=== PATIENT | female | born 1965 | race African-American/Black ===

== ENCOUNTER 2016-10-09 10:33 | Emergency (ER) | payer SELFPAY ==
[~2016-10-09] VITALS: Ht 160 cm; Wt 131.5 kg
--- NOTE | 2016-10-09 11:33 | PHYS DOC ---
Past Medical History Past Medical History: Asthma Past Surgical History: Tubal ligation Alcohol Use: Occasionally Drug Use: None Adult General Chief Complaint Chief Complaint: ANKLE PROBLEM HPI HPI Patient is a 51 year old female presents to the emergency department stating that she slipped on some well at car trip on . She states that she's been taken Aleve for pain and discomfort however she woke up this morning with increased pain and discomfort in the right lateral part of the ankle. Patient also states that she has a knot on the top of her foot. Patient states that she has increased pain with ambulation. Denies any numbness or tingling into her extremities. Patient is able to move the toes with no difficulty. Review of Systems Review of Systems Constitutional: Denies fever or chills [] Eyes: Denies change in visual acuity, redness, or eye pain [] HENT: Denies nasal congestion or sore throat [] Respiratory: Denies cough or shortness of breath [] Cardiovascular: No additional information not addressed in HPI [] GI: Denies abdominal pain, nausea, vomiting, bloody stools or diarrhea [] : Denies dysuria or hematuria [] Musculoskeletal: Denies back pain. Right ankle pain Integument: Denies rash or skin lesions [] Neurologic: Denies headache, focal weakness or sensory changes [] Endocrine: Denies polyuria or polydipsia [] Allergies Allergies Allergies Coded Allergies Type Severity Reaction Last Updated Verified No Known Drug Allergies 10/09/16 No Physical Exam Physical Exam Constitutional: Well developed, well nourished, no acute distress, non-toxic appearance. [] HENT: Normocephalic, atraumatic, bilateral external ears normal, oropharynx moist, no oral exudates, nose normal. [] Eyes: PERRLA, EOMI, conjunctiva normal, no discharge. [] Neck: Normal range of motion, no tenderness, supple, no stridor. [] Cardiovascular:Heart rate regular rhythm Lungs & Thorax: No respiratory distress noted. Skin: Warm, dry, no erythema, no rash. [] Back: No tenderness Extremities: Right lateral ankle tenderness, no cyanosis, no clubbing, ROM intact, no edema. No significant swelling noted, no bruising no discoloration noted. Peripheral pulses 2+ cap refill brisk less than 2 seconds. Patient was also noted to have a cyst on the top of the right foot. Neurologic: Alert and oriented X 3, normal motor function, normal sensory function, no focal deficits noted. [] Psychologic: Affect normal, judgement normal, mood normal. [] Current Patient Data Vital Signs Vital Signs Date Time Temp Pulse Resp B/P (MAP) Pulse Ox O2 Delivery O2 Flow Rate FiO2 10/09/16 10:38 98.2 100 18 99 Room Air 98.2 EKG EKG [] Radiology/Procedures Radiology/Procedures [][facility] [address] [place] [address] IMAGING REPORT Signed PATIENT: REESE DIETRICH ACCOUNT: [id number] : 1965 LOCATION: ER AGE: 51 SEX: F EXAM STATUS: REG ER ORD. PHYSICIAN: CALIN SAMPSON APRN REASON: right ankle pain and injury PROCEDURE: ANKLE RIGHT 3V Three-view right ankle radiographs 10/09/2016 Clinical history: Right ankle pain post fall. AP, lateral and oblique digital radiographs of the right ankle were obtained. The right ankle mortise is intact. No fracture or dislocation of the right ankle seen. Mild degenerative changes are seen involving the right ankle joint. Mild to moderate enthesophyte formation is seen involving the posterior right calcaneus. Impression: No fracture or dislocation of the right ankle is seen. DICTATED and SIGNED BY: MANDO MONROY MD DATE: 10/09/16 0930 CC: CALIN SAMPSON APRN; NON,STAFF; UNKNOWN PCP NAME ~ Course & Med Decision Making Course & Med Decision Making Pertinent Labs and Imaging studies reviewed. (See chart for details) X-rays were negative for any bony abnormalities. Patient will be placed in Cedric wrap and an Air-Stirrup splint. Recommended wearing the Cedric wrap for the next 5- 7 days in the Air-Stirrup splint for the next 7-10 days. Patient was recommended ice packs on 20 minutes off treatment several times a day. Elevation as much as possible. Patient was also encouraged to continue using Aleve or ibuprofen for pain and discomfort. Patient will be discharged home in stable condition. Patient was provided with orthopedic name and number to follow up with. All questions and concerns were answered at the patient's bedside. [] Dragon Disclaimer Dragon Disclaimer This electronic medical record was generated, in whole or in part, using a voice recognition dictation system. Departure Departure Impression: Primary Impression: Right ankle sprain Additional Impression: Ganglion cyst of right foot Disposition: 01 HOME, SELF-CARE Condition: STABLE Referrals: UNKNOWN PCP NAME (PCP) JACE MCCURDY MD Patient Instructions: Ankle Sprain, [id number], Ganglion Cyst, RICE - Routine Care for Injuries, [id number] Additional Instructions: Activity as tolerated. Wear the Cedric wrap for the next 5-7 days, the Air-Stirrup splint for the next 7- 10 days. Ice packs on 20 minutes off 20 minutes several times a day. Elevation as much as possible. Continue to use ibuprofen or Aleve for pain and discomfort. Follow-up with orthopedic in the next week. Return back to emergency prior signs symptoms of become worse. Problem Qualifiers CALIN SAMPSON APRN Oct 09, 2016 11:33
[2016-10-09 11:52] VITALS: BP 152/84
== END 2016-10-09 11:53 | disposition home or self-care (01) ==
LOC: ER 10:33
DX: S93.401A Sprain of unspecified ligament of right ankle, initial encounter (principal); M67.471 Ganglion, right ankle and foot; J45.909 Unspecified asthma, uncomplicated; W18.40XA Slipping, tripping and stumbling without falling, unspecified, initial encounter; Y93.89 Activity, other specified; Y92.89 Other specified places as the place of occurrence of the external cause; Y99.8 Other external cause status
CPT/HCPCS: 73610; 99284; L4350

== ENCOUNTER 2018-07-12 13:11 | Observation (INO) | payer OTHER ==
[~2018-07-12] VITALS: Ht 160 cm; Wt 148.9 kg
--- NOTE | 2018-07-12 13:35 | EKG ---
[facility] [address] [place] [address] Test Date: 2018-07-12 Test Time: 13:16:53 Pat Name: REESE BURNETTE Department: Room: Gender: F [employer] Operator: : 1965 Requested By: MAHNAZ MARTINEZ Order Number: [id number] Reading MD: Micah Ortiz Measurements Intervals [place] Rate: 110 P: -121 AL: 68 QRS: 42 QRSD: 72 T: 56 QT: 316 QTc: 433 Interpretive Statements SINUS RHYTHM Electronically Signed On 08-04-2018 12:05:33 CDT by Micah Ortiz
[2018-07-12 13:38] LABS: BASO % 1 % (0-3); EOS # 0.1 x10^3/uL (0.0-0.7); EOS % 2 % (0-3); HEMATOCRIT 40.6 % (36.0-47.0); HEMOGLOBIN 13.3 g/dL (12.0-15.5); LYMPH # 1.8 x10^3/uL (1.0-4.8); LYMPH % 32 % (24-48); MEAN CORPUSCULAR HEMOGLOBIN 28 pg (25-35); MEAN CORPUSCULAR HGB CONC 33 g/dL (31-37); MEAN CORPUSCULAR VOLUME 85 fL (79-100); MONO # 0.3 x10^3/uL (0.0-1.1); MONO % 6 % (0-9); NEUT # 3.5 x10^3uL (1.8-7.7); NEUT % 60 % (31-73); PLATELET COUNT 310 x10^3/uL (140-400); RED BLOOD COUNT 4.75 x10^6/uL (3.50-5.40); RED CELL DISTRIBUTION WIDTH 15.8 % (11.5-14.5); WHITE BLOOD COUNT 5.8 x10^3/uL (4.0-11.0)
--- NOTE | 2018-07-12 13:42 | RAD ---
Single view chest dated 07/12/2018. Comparison made to 02/04/2009. CLINICAL INDICATION: Left arm numbness. FINDINGS: Single upright portable exam performed. Heart and mediastinal contours are within normal limits. Lungs are somewhat hyperinflated but otherwise clear. No consolidation or pleural effusion. No pneumothorax. Mildly prominent perihilar linear markings are unchanged from prior study. IMPRESSION: No acute radiographic abnormality. Stable findings compared to 02/04/2009 Electronically signed by: Dewey Stiles MD (07/12/2018 1:40 PM) [id number]
[2018-07-12] MEDS ORDERED: MORPHINE SULFATE 4 MG/ML VIAL. IV ONE ×2 (13:45→14:45)
[2018-07-12 13:46] LABS: PROTHROMBIN TIME PATIENT 13.2 SEC (11.7-14.0)
[2018-07-12 14:09] LABS: ALBUMIN 3.6 g/dL (3.4-5.0); ALBUMIN/GLOBULIN RATIO 0.9 (1.0-1.7); CALCIUM 8.8 mg/dL (8.5-10.1); CREATININE 0.9 mg/dL (0.6-1.0); GFR 79.9; TOTAL BILIRUBIN 0.7 mg/dL (0.2-1.0); TOTAL PROTEIN 7.8 g/dL (6.4-8.2)
[2018-07-12 14:15] LABS: POTASSIUM 3.7 mmol/L (3.5-5.1)
--- NOTE | 2018-07-12 14:30 | PHYS DOC ---
Past Medical History Past Medical History: Asthma, Hypertension Past Surgical History: Tubal ligation Alcohol Use: Occasionally Drug Use: None Adult General Chief Complaint Chief Complaint: CHEST PAIN HPI HPI Patient is a 53 year old F who presents with chest pain. Started last night at midnight. Has been constant but has eased up. She thought she might be able to go to work. But the pain came back stronger. She thought it was a muscle spasm so she took 600 mg ibuprofen. She denies prior cardiac history. She does not smoke but she does have high blood pressure. She does not use drugs but drinks occas, had 1 strawberry daquiri last night. She says many members of her family have had MIs including multiple cousins in their 30s. She has not traveled recently and does not take estrogens/hormones. Review of Systems Review of Systems Constitutional: Denies fever or chills Eyes: Denies change in visual acuity, redness, or eye pain HENT: Denies nasal congestion or sore throat Respiratory: Denies cough or shortness of breath Cardiovascular: Endorses CP GI: Denies abdominal pain, nausea, vomiting, bloody stools or diarrhea : Denies dysuria or hematuria Musculoskeletal: Denies back pain or joint pain Integument: Denies rash or skin lesions Neurologic: Denies headache, focal weakness or sensory changes All other systems were reviewed and found to be within normal limits, except as documented in this note. Current Medications Current Medications Current Medications Medications (Trade) Dose Ordered Sig/Linden Start Time Stop Time Status Last Admin Dose Admin Morphine Sulfate (Morphine Sulfate) 4 mg 1X ONCE 07/12/18 14:45 07/12/18 14:53 DC 07/12/18 14:54 4 MG Allergies Allergies Allergies Coded Allergies Type Severity Reaction Last Updated Verified No Known Drug Allergies 10/09/16 No Physical Exam Physical Exam Constitutional: Well developed, well nourished, no acute distress, non-toxic appearance. HENT: Normocephalic, atraumatic, bilateral external ears normal, oropharynx moist, no oral exudates, nose normal. Eyes: PERRLA, EOMI, conjunctiva normal, no discharge. Neck: Normal range of motion, no tenderness, supple, no stridor. Cardiovascular:Heart rate regular rhythm, no murmur; TTP R chest Lungs & Thorax: Bilateral breath sounds clear to auscultation Abdomen: Bowel sounds normal, soft, no tenderness, no masses, no pulsatile masses. Skin: Warm, dry, no erythema, no rash. Back: No tenderness, no CVA tenderness. Extremities: No tenderness, no cyanosis, no clubbing, ROM intact, no edema. Neurologic: Alert and oriented X 3, normal motor function, normal sensory function, no focal deficits noted. Psychologic: Affect normal, judgement normal, mood normal. Current Patient Data Vital Signs Vital Signs Date Time Temp Pulse Resp B/P (MAP) Pulse Ox O2 Delivery O2 Flow Rate FiO2 07/12/18 14:30 90 22 140/84 (102) 98 Room Air 07/12/18 13:12 98.3 98.3 Lab Values Laboratory Tests Test 07/12/18 13:20 07/12/18 14:32 White Blood Count 5.8 x10^3/uL (4.0-11.0) Red Blood Count 4.75 x10^6/uL (3.50-5.40) Hemoglobin 13.3 g/dL (12.0-15.5) Hematocrit 40.6 % (36.0-47.0) Mean Corpuscular Volume 85 fL (79-100) Mean Corpuscular Hemoglobin 28 pg (25-35) Mean Corpuscular Hemoglobin Concent 33 g/dL (31-37) Red Cell Distribution Width 15.8 % (11.5-14.5) H Platelet Count 310 x10^3/uL (140-400) Neutrophils (%) (Auto) 60 % (31-73) Lymphocytes (%) (Auto) 32 % (24-48) Monocytes (%) (Auto) 6 % (0-9) Eosinophils (%) (Auto) 2 % (0-3) Basophils (%) (Auto) 1 % (0-3) Neutrophils # (Auto) 3.5 x10^3uL (1.8-7.7) Lymphocytes # (Auto) 1.8 x10^3/uL (1.0-4.8) Monocytes # (Auto) 0.3 x10^3/uL (0.0-1.1) Eosinophils # (Auto) 0.1 x10^3/uL (0.0-0.7) Basophils # (Auto) 0.0 x10^3/uL (0.0-0.2) Prothrombin Time 13.2 SEC (11.7-14.0) Prothrombin Time INR 1.0 (0.8-1.1) Sodium Level 139 mmol/L (136-145) Potassium Level 3.7 mmol/L (3.5-5.1) Chloride Level 102 mmol/L (98-107) Carbon Dioxide Level 24 mmol/L (21-32) Anion Gap 13 (6-14) Blood Urea Nitrogen 13 mg/dL (7-20) Creatinine 0.9 mg/dL (0.6-1.0) Estimated GFR (Cockcroft-Gault) 79.9 BUN/Creatinine Ratio 14 (6-20) Glucose Level 131 mg/dL (70-99) H Calcium Level 8.8 mg/dL (8.5-10.1) Total Bilirubin 0.7 mg/dL (0.2-1.0) Aspartate Amino Transferase (AST) 21 U/L (15-37) Alanine Aminotransferase (ALT) 32 U/L (14-59) Alkaline Phosphatase 102 U/L (46-116) Troponin I Quantitative < 0.017 ng/mL (0.000-0.055) FC-Rty-[id number]-Type Natriuretic Peptide 64 pg/mL (0-124) Total Protein 7.8 g/dL (6.4-8.2) Albumin 3.6 g/dL (3.4-5.0) Albumin/Globulin Ratio 0.9 (1.0-1.7) L Urine Collection Type Void Urine Color Yellow Urine Clarity Cloudy Urine pH 7.0 Urine Specific [place] 1.025 Urine Protein Negative mg/dL (NEG-TRACE) Urine Glucose (UA) Negative mg/dL (NEG) Urine Ketones (Stick) Negative mg/dL (NEG) Urine Blood Large (NEG) Urine Nitrite Negative (NEG) Urine Bilirubin Negative (NEG) Urine Urobilinogen Dipstick 1.0 mg/dL (0.2 mg/dL) Urine Leukocyte Esterase Trace (NEG) Urine RBC 11-20 /HPF (0-2) Urine WBC 1-4 /HPF (0-4) Urine Squamous Epithelial Cells Many /LPF Urine Bacteria Few /HPF (0-FEW) Urine Mucus Marked /LPF Laboratory Tests 07/12/18 13:20 Laboratory Tests 07/12/18 13:20 EKG EKG [] Radiology/Procedures Radiology/Procedures PROCEDURE: CT ANGIOGRAPHY CHEST CTA of the chest with contrast, 07/12/2018: HISTORY: Chest pain, shortness of breath Multidetector CT imaging was performed following an IV bolus injection of iodinated contrast material. No filling defects are seen in the main, lobar or segmental pulmonary arteries to suggest pulmonary emboli.There are pulsation type artifacts related to the ascending aorta. Minimal aortic calcific plaquing is present. There is no mediastinal or hilar adenopathy is seen. There is mild mosaic attenuation the lungs. No pulmonary mass or dense consolidation is seen. There is no evidence of pleural fluid. IMPRESSION: 1. No CT evidence of acute pulmonary emboli. 2. Mild mosaic attenuation the lungs which can be due to a variety of causes including small airway disease with air trapping, chronic thromboembolic disease or nonspecific groundglass opacities. Course & Med Decision Making Course & Med Decision Making Pertinent Labs and Imaging studies reviewed. (See chart for details) 53 y/o F presents for chest pain. CBC, CMP, Trop, BNP EKG: NSR 110 bpm, no ST elev or depr, nrml intervals. Trop neg. BNP neg. Labs reassuring. CXR neg. Admit for ACS rule out. Dragon Disclaimer Dragon Disclaimer This electronic medical record was generated, in whole or in part, using a voice recognition dictation system. Departure Departure Impression: Primary Impression: Chest pain Disposition: ADMITTED INPATIENT Admitting Physician: Other Condition: IMPROVED Referrals: COLIN ADAMES MD (PCP) MAHNAZ MARTINEZ MD July 12, 2018 14:30
[2018-07-12 14:47] LABS: BILIRUBIN,URINE NEGATIVE (NEG); CLARITY,URINE CLOUDY; COLOR,URINE YELLOW; NITRITE,URINE NEGATIVE (NEG); PROTEIN,URINE NEGATIVE (NEG-TRACE)
[2018-07-12 15:00] LABS: BACTERIA,URINE FEW /HPF (0-FEW)
[2018-07-12] MEDS ORDERED: IOHEXOL 350 MG/ML 100 ML VIAL. IV ONE (15:00)
[2018-07-12] MEDS ORDERED: CONTRAST GIVEN. MC PRN (15:00)
[2018-07-12 15:01] LABS: SQUAMOUS EPITHELIAL CELL,UR MANY /LPF
[2018-07-12] MEDS ORDERED: ENALAPRILAT 1.25 MG/ML VIAL. IVP PRN (15:15)
[2018-07-12] MEDS ORDERED: MAG HYDROX/ALUMINUM HYD/SIMETH 30 ML ORAL.SUSP PO PRN (15:15)
[2018-07-12] MEDS ORDERED: LACTULOSE 20 GM/30 ML SOLUTION. PO PRN (15:15)
[2018-07-12] MEDS ORDERED: ONDANSETRON PF 4 MG/2 ML VIAL. IV PRN (15:15)
[2018-07-12] MEDS ORDERED: ACETAMINOPHEN 325 MG TABLET. PO PRN (15:15)
[2018-07-12] MEDS ORDERED: ZOLPIDEM 5 MG TABLET. PO PRN (15:15)
[2018-07-12] MEDS ORDERED: 0.9 % SODIUM CHLORIDE 10 ML DISP.SYRIN. IV PRN (15:15)
[2018-07-12] MEDS ORDERED: NITROGLYCERIN SUBLINGUAL 0.4 MG BOTTLE OF 25. SL PRN (15:15)
--- NOTE | 2018-07-12 15:31 | RAD ---
CTA of the chest with contrast, 07/12/2018: HISTORY: Chest pain, shortness of breath Multidetector CT imaging was performed following an IV bolus injection of iodinated contrast material. No filling defects are seen in the main, lobar or segmental pulmonary arteries to suggest pulmonary emboli.There are pulsation type artifacts related to the ascending aorta. Minimal aortic calcific plaquing is present. There is no mediastinal or hilar adenopathy is seen. There is mild mosaic attenuation the lungs. No pulmonary mass or dense consolidation is seen. There is no evidence of pleural fluid. IMPRESSION: 1. No CT evidence of acute pulmonary emboli. 2. Mild mosaic attenuation the lungs which can be due to a variety of causes including small airway disease with air trapping, chronic thromboembolic disease or nonspecific groundglass opacities. PQRS Compliance Statement: One or more of the following individualized dose reduction techniques were utilized for this examination: 1. Automated exposure control 2. Adjustment of the mA and/or kV according to patient size 3. Use of iterative reconstruction technique Electronically signed by: Brain Robles MD (07/12/2018 3:28 PM) [facility]
--- NOTE | 2018-07-12 16:45 | NUR ---
Pt arrived to unit from ER via gurney to room 260. Pt ambulated to bed. Family at bedside. Pt complaining of midsternal chest pain and shortness of breath with activity. VS stable. Call light within reach. Will continue to monitor. The patient, REESE BURNETTE, 53 y/o, F admitted by DONNA SHIRLEY MD, was given written information regarding hospital policies, unit procedures and contact persons. Valuables were checked and kept in room with patient.
[2018-07-12] MEDS ORDERED: HYDR12.575 PO (17:00)
[2018-07-12] MEDS ORDERED: SERT50TA PO (17:00)
[2018-07-12] MEDS ORDERED: TRAM50TA PO (17:00)
[2018-07-12] MEDS ORDERED: AMLO5TAB10 PO (17:00)
[2018-07-12] MEDS ORDERED: CHOL2000 PO (17:00)
[2018-07-12 17:10] VITALS: BP 154/78
[2018-07-12] MEDS: ASPIRIN CHEWABLE 81 MG TABLET. PO SCH (18:27)
--- NOTE | 2018-07-12 18:56 | PDOC1 ---
History and Physical Date of Admission Date of Admission 07/12/2018 Identification/Chief Complaint Chief Complaint My chest hurts Problems: (1) Chest pain Source Source: Chart review, Patient History of Present Illness History of Present Illness Patient is a 53-year-old female with past medical history of hypertension was in her usual state of health until approximately 4-6 weeks prior to her admission was complaining of shortness of breath. Patient also refers peripheral edema especially in her extremities up to the ankle. The patient complains of retrosternal reproducible sharp stabbing discomfort that she rates at a 7 out of 10 at the worst lasting less than 20 minutes per episode intermittent not associated with food intake. The patient denies cough no sinus drainage the patient does have asthma but denies recent bouts of exacerbations. The patient denies fever chills no sick contacts were reported. The patient denies sensation of impending doom when the episodes of chest discomfort occurred no nausea or vomiting associated either no diaphoresis. The patient does give a history of dietary transgression with excessive salt since she relates to me that she "loves [place] food". The patient seems quite disturbed due to her symptoms given that she has apparently a strong family history nevertheless at the time my evaluation she seems in no apparent distress sitting on the stretcher. Her pain was clearly reproducible during my encounter she denies paroxysmal nocturnal dyspnea she denies orthopnea does not carry a diagnosis of coronary artery disease nor congestive heart failure. The patient denies daytime sleepiness nevertheless she does have a typical body habitus of someone who is afflicted by obstructive sleep apnea. We have been asked to admit patient for evaluation of chest discomfort Past Medical History Cardiovascular: HTN Current Problem List Problem List Problems Medical Problems: (1) Chest pain Status: Acute Current Medications Current Medications Current Medications Medications (Trade) Dose Ordered Sig/Lind[place] Start Time Stop Time Status Last Admin Dose Admin Acetaminophen (Tylenol) 650 mg PRN Q6HRS PRN 07/12/18 15:15 Al Hydroxide/Mg Hydroxide (Mylanta Plus Xs) 30 ml PRN Q4HRS PRN 07/12/18 15:15 Aspirin (Children'S Aspirin) 81 mg [id number] 07/12/18 16:30 07/12/18 18:27 81 MG Enalaprilat (Vasotec Inj) 1.25 mg PRN Q6HRS PRN 07/12/18 15:15 Heparin Sodium (Porcine) (Heparin Sodium) 5,000 unit Q8HRS 07/12/18 22:00 Info (CONTRAST GIVEN -- Rx MONITORING) 1 each PRN DAILY PRN 07/12/18 15:00 07/14/18 14:59 Iohexol (Omnipaque 350 Mg/ml) 100 ml 1X ONCE 07/12/18 15:00 07/12/18 15:01 DC 07/12/18 15:00 100 ML Lactulose (Lactulose) 20 gm PRN Q12HR PRN 07/12/18 15:15 Morphine Sulfate (Morphine Sulfate) 4 mg 1X ONCE 07/12/18 14:45 07/12/18 14:53 DC 07/12/18 14:54 4 MG Nitroglycerin (Nitrostat) 0.4 mg PRN Q5MIN PRN 07/12/18 15:15 Ondansetron HCl (Zofran) 4 mg PRN Q6HRS PRN 07/12/18 15:15 Sodium Chloride (Normal Saline Flush) 3 ml QSHIFT PRN 07/12/18 15:15 Zolpidem Tartrate (Ambien) 5 mg PRN QHS PRN 07/12/18 15:15 Allergies Allergies Allergies Coded Allergies Type Severity Reaction Last Updated Verified No Known Drug Allergies 10/09/16 No ROS Review of System CONSTITUTIONAL: No fever or chills EYES: No recent changes SKIN: No rash or itching CARDIOVASCULAR: + chest pain, no syncope, palpitations, +edema RESPIRATORY: No SOB or cough GASTROINTESTINAL: No nausea, vomiting or abdominal pain NEUROLOGICAL: No headaches or weakness ENDOCRINE: No cold or heat intolerance GENITOURINARY: No urgency or frequency of urination MUSCULOSKELETAL: No back pain or joint pain LYMPHATICS: No enlarged lymph nodes PSYCHIATRIC: No anxiety or depression Physical Exam Physical Exam GEN.: No apparent distress. Alert and oriented. HEENT: Head is normocephalic, atraumatic NECK: Supple. LUNGS: Clear to auscultation. HEART: RRR, S1, S2 present. Peripheral pulses intact ABDOMEN: Soft, nontender. Positive bowel sounds. EXTREMITIES: Without any cyanosis. NEUROLOGIC: Normal speech, normal tone PSYCHIATRIC: Normal affect, normal mood. SKIN: No ulcerations Vitals Vitals Vital Signs Date Time Temp Pulse Resp B/P (MAP) Pulse Ox O2 Delivery O2 Flow Rate FiO2 5/15/19 17:44 Room Air 07/12/18 17:10 98.2 77 18 154/78 (103) 98 98.2 Labs Labs Laboratory Tests Test 07/12/18 13:20 07/12/18 14:32 White Blood Count 5.8 x10^3/uL (4.0-11.0) Red Blood Count 4.75 x10^6/uL (3.50-5.40) Hemoglobin 13.3 g/dL (12.0-15.5) Hematocrit 40.6 % (36.0-47.0) Mean Corpuscular Volume 85 fL (79-100) Mean Corpuscular Hemoglobin 28 pg (25-35) Mean Corpuscular Hemoglobin Concent 33 g/dL (31-37) Red Cell Distribution Width 15.8 % (11.5-14.5) Platelet Count 310 x10^3/uL (140-400) Neutrophils (%) (Auto) 60 % (31-73) Lymphocytes (%) (Auto) 32 % (24-48) Monocytes (%) (Auto) 6 % (0-9) Eosinophils (%) (Auto) 2 % (0-3) Basophils (%) (Auto) 1 % (0-3) Neutrophils # (Auto) 3.5 x10^3uL (1.8-7.7) Lymphocytes # (Auto) 1.8 x10^3/uL (1.0-4.8) Monocytes # (Auto) 0.3 x10^3/uL (0.0-1.1) Eosinophils # (Auto) 0.1 x10^3/uL (0.0-0.7) Basophils # (Auto) 0.0 x10^3/uL (0.0-0.2) Prothrombin Time 13.2 SEC (11.7-14.0) Prothromb Time International Ratio 1.0 (0.8-1.1) Sodium Level 139 mmol/L (136-145) Potassium Level 3.7 mmol/L (3.5-5.1) Chloride Level 102 mmol/L (98-107) Carbon Dioxide Level 24 mmol/L (21-32) Anion Gap 13 (6-14) Blood Urea Nitrogen 13 mg/dL (7-20) Creatinine 0.9 mg/dL (0.6-1.0) Estimated GFR (Cockcroft-Gault) 79.9 BUN/Creatinine Ratio 14 (6-20) Glucose Level 131 mg/dL (70-99) Calcium Level 8.8 mg/dL (8.5-10.1) Total Bilirubin 0.7 mg/dL (0.2-1.0) Aspartate Amino Transf (AST/SGOT) 21 U/L (15-37) Alanine Aminotransferase (ALT/SGPT) 32 U/L (14-59) Alkaline Phosphatase 102 U/L (46-116) Troponin I Quantitative < 0.017 ng/mL (0.000-0.055) GC-Xht-S-Type Natriuretic Peptide 64 pg/mL (0-124) Total Protein 7.8 g/dL (6.4-8.2) Albumin 3.6 g/dL (3.4-5.0) Albumin/Globulin Ratio 0.9 (1.0-1.7) Urine Collection Type Void Urine Color Yellow Urine Clarity Cloudy Urine pH 7.0 Urine Specific [place] 1.025 Urine Protein Negative mg/dL (NEG-TRACE) Urine Glucose (UA) Negative mg/dL (NEG) Urine Ketones (Stick) Negative mg/dL (NEG) Urine Blood Large (NEG) Urine Nitrite Negative (NEG) Urine Bilirubin Negative (NEG) Urine Urobilinogen Dipstick 1.0 mg/dL (0.2 mg/dL) Urine Leukocyte Esterase Trace (NEG) Urine RBC 11-20 /HPF (0-2) Urine WBC 1-4 /HPF (0-4) Urine Squamous Epithelial Cells Many /LPF Urine Bacteria Few /HPF (0-FEW) Urine Mucus Marked /LPF Laboratory Tests Test 07/12/18 13:20 07/12/18 14:32 White Blood Count 5.8 x10^3/uL (4.0-11.0) Red Blood Count 4.75 x10^6/uL (3.50-5.40) Hemoglobin 13.3 g/dL (12.0-15.5) Hematocrit 40.6 % (36.0-47.0) Mean Corpuscular Volume 85 fL (79-100) Mean Corpuscular Hemoglobin 28 pg (25-35) Mean Corpuscular Hemoglobin Concent 33 g/dL (31-37) Red Cell Distribution Width 15.8 % (11.5-14.5) Platelet Count 310 x10^3/uL (140-400) Neutrophils (%) (Auto) 60 % (31-73) Lymphocytes (%) (Auto) 32 % (24-48) Monocytes (%) (Auto) 6 % (0-9) Eosinophils (%) (Auto) 2 % (0-3) Basophils (%) (Auto) 1 % (0-3) Neutrophils # (Auto) 3.5 x10^3uL (1.8-7.7) Lymphocytes # (Auto) 1.8 x10^3/uL (1.0-4.8) Monocytes # (Auto) 0.3 x10^3/uL (0.0-1.1) Eosinophils # (Auto) 0.1 x10^3/uL (0.0-0.7) Basophils # (Auto) 0.0 x10^3/uL (0.0-0.2) Prothrombin Time 13.2 SEC (11.7-14.0) Prothromb Time International Ratio 1.0 (0.8-1.1) Sodium Level 139 mmol/L (136-145) Potassium Level 3.7 mmol/L (3.5-5.1) Chloride Level 102 mmol/L (98-107) Carbon Dioxide Level 24 mmol/L (21-32) Anion Gap 13 (6-14) Blood Urea Nitrogen 13 mg/dL (7-20) Creatinine 0.9 mg/dL (0.6-1.0) Estimated GFR (Cockcroft-Gault) 79.9 BUN/Creatinine Ratio 14 (6-20) Glucose Level 131 mg/dL (70-99) Calcium Level 8.8 mg/dL (8.5-10.1) Total Bilirubin 0.7 mg/dL (0.2-1.0) Aspartate Amino Transf (AST/SGOT) 21 U/L (15-37) Alanine Aminotransferase (ALT/SGPT) 32 U/L (14-59) Alkaline Phosphatase 102 U/L (46-116) Troponin I Quantitative < 0.017 ng/mL (0.000-0.055) MJ-Jrt-Q-Type Natriuretic Peptide 64 pg/mL (0-124) Total Protein 7.8 g/dL (6.4-8.2) Albumin 3.6 g/dL (3.4-5.0) Albumin/Globulin Ratio 0.9 (1.0-1.7) Urine Collection Type Void Urine Color Yellow Urine Clarity Cloudy Urine pH 7.0 Urine Specific [place] 1.025 Urine Protein Negative mg/dL (NEG-TRACE) Urine Glucose (UA) Negative mg/dL (NEG) Urine Ketones (Stick) Negative mg/dL (NEG) Urine Blood Large (NEG) Urine Nitrite Negative (NEG) Urine Bilirubin Negative (NEG) Urine Urobilinogen Dipstick 1.0 mg/dL (0.2 mg/dL) Urine Leukocyte Esterase Trace (NEG) Urine RBC 11-20 /HPF (0-2) Urine WBC 1-4 /HPF (0-4) Urine Squamous Epithelial Cells Many /LPF Urine Bacteria Few /HPF (0-FEW) Urine Mucus Marked /LPF VTE Prophylaxis Ordered VTE Prophylaxis Devices: Yes VTE Pharmacological Prophylaxi: Yes Assessment/Plan Assessment/Plan Chest pain rule out ACS Hypertension Dietary transgressions with increased salt intake most likely Morbid obesity with BMI of 57 High risk for obstructive sleep apnea Chest discomfort most likely musculoskeletal in nature since it's reproducible Plan: Do lipid panel in the a.m. for risk stratification We'll consult cardiology Will follow troponin trend Admit the patient to telemetry floor She may need a sleep study in the outpatient setting Resume home medications DVT prophylaxis with Lovenox Further recommendations based on the clinical course DONNA SHIRLEY MD July 12, 2018 18:56
[2018-07-12] MEDS ORDERED: DEXAMETHASONE SOD PHOS 4 MG/ML VIAL IV ONE (19:00)
[2018-07-12] MEDS ORDERED: HEPARIN for IV BOLUS 10,000 UNIT/10 ML VIAL. IV PRN ×2 (19:30)
[2018-07-12] MEDS ORDERED: HEPARIN 25,000UTS/500ML PREMIX 500 ML IV PRN (19:30)
[2018-07-12 19:40] VITALS: BP 136/73
[2018-07-12] MEDS ORDERED: TEMAZEPAM 15 MG CAPSULE PO PRN (19:45)
[2018-07-12] MEDS: traMADol 50 MG TABLET PO PRN (20:15)
[2018-07-12] MEDS: HEPARIN for SUB-Q USE 5,000 UNIT/ML VIAL. SQ SCH (21:52)
[2018-07-12 23:47] VITALS: BP 137/62
[2018-07-13 03:20] VITALS: BP 137/80
[2018-07-13] MEDS: traMADol 50 MG TABLET PO PRN ×2 (04:23→11:40)
[2018-07-13 05:28] LABS: HEMATOCRIT 38.7 % (36.0-47.0); HEMOGLOBIN 12.7 g/dL (12.0-15.5); RED BLOOD COUNT 4.52 x10^6/uL (3.50-5.40); RED CELL DISTRIBUTION WIDTH 15.9 % (11.5-14.5); WHITE BLOOD COUNT 4.2 x10^3/uL (4.0-11.0)
[2018-07-13] MEDS: HEPARIN for SUB-Q USE 5,000 UNIT/ML VIAL. SQ SCH (06:06)
[2018-07-13 06:07] LABS: CREATININE 0.8 mg/dL (0.6-1.0); GFR 91.5; POTASSIUM 4.3 mmol/L (3.5-5.1)
[2018-07-13 06:08] LABS: CHOLESTEROL/HDL RATIO 3.3
[2018-07-13 07:00] VITALS: BP 138/84
--- NOTE | 2018-07-13 07:43 | RAD ---
Bilateral lower extremity venous ultrasound, 07/12/2018: History: Elevated d-dimer, chest pain, bilateral leg swelling Duplex evaluation of the deep veins in the lower extremities was performed including grayscale, color-flow and spectral Doppler analysis. The femoral and popliteal veins demonstrate normal compressibility and normal responses to distal augmentation maneuvers. Color imaging of those vessels shows no evidence of intraluminal clot. The visualized deep veins in both calves are patent. IMPRESSION: There is no sonographic evidence of deep vein thrombosis in either lower extremity. Electronically signed by: Brain Robles MD (07/13/2018 7:40 AM) [facility]
[2018-07-13] MEDS ORDERED: REGADENOSON 0.4 MG/5 ML DISP.SYRIN. IV ONE (08:00)
--- NOTE | 2018-07-13 08:10 | PDOC ---
PROGRESS NOTES Chief Complaint Chief Complaint A/P: Chest pain rule out ACS Hypertension Dietary transgressions with increased salt intake most likely Morbid obesity with BMI of 57 High risk for obstructive sleep apnea Chest discomfort most likely musculoskeletal in nature since it's reproducible Plan: Do lipid panel in the a.m. for risk stratification We'll consult cardiology Will follow troponin trend Admit the patient to telemetry floor She may need a sleep study in the outpatient setting Resume home medications DVT prophylaxis with Lovenox Further recommendations based on the clinical course History of Present Illness History of Present Illness Patient is a 53-year-old w/ PMHx hypertension and morbid obesity was in her usual state of health until approximately 4-6 weeks prior to her admission was complaining of shortness of breath. Patient also refers peripheral edema especially in her extremities up to the ankle. The patient complains of retrosternal reproducible sharp stabbing discomfort that she rates at a 7 out of 10 at the worst lasting less than 20 minutes per episode intermittent not associated with food intake. The patient denies cough no sinus drainage the patient does have asthma but denies recent bouts of exacerbations. The patient denies fever chills no sick contacts were reported. The patient denies sensation of impending doom when the episodes of chest discomfort occurred no nausea or vomiting associated either no diaphoresis. The patient does give a history of dietary transgression with excessive salt since she relates to me that she "loves [place] food". The patient seems quite disturbed due to her symptoms given that she has apparently a strong family history nevertheless at the time my evaluation she seems in no apparent distress sitting on the stretcher. Her pain was clearly reproducible during my encounter she denies paroxysmal nocturnal dyspnea she denies orthopnea does not carry a diagnosis of coronary artery disease nor congestive heart failure. The patient denies daytime sleepiness. Bilateral LE US negative for DVT, CTPA negative for acute emboli. EKG and troponin negative for ACS. BNP 64 r/o CHF. Cardiology consulted. Vitals Vitals Vital Signs Date Time Temp Pulse Resp B/P (MAP) Pulse Ox O2 Delivery O2 Flow Rate FiO2 07/13/18 07:00 97.7 70 18 138/84 (102) 97 Nasal Cannula 2.0 97.7 Physical Exam General: Alert, Oriented X3, Cooperative Heart: Regular rate, Normal S1, Normal S2 Lungs: Clear Abdomen: Normal bowel sounds, Soft, No tenderness, No hepatosplenomegaly Extremities: No clubbing, No cyanosis Skin: No rashes, No breakdown Labs LABS Laboratory Tests Test 07/12/18 13:20 07/12/18 14:32 07/13/18 04:05 White Blood Count 5.8 x10^3/uL (4.0-11.0) 4.2 x10^3/uL (4.0-11.0) Red Blood Count 4.75 x10^6/uL (3.50-5.40) 4.52 x10^6/uL (3.50-5.40) Hemoglobin 13.3 g/dL (12.0-15.5) 12.7 g/dL (12.0-15.5) Hematocrit 40.6 % (36.0-47.0) 38.7 % (36.0-47.0) Mean Corpuscular Volume 85 fL (79-100) 86 fL (79-100) Mean Corpuscular Hemoglobin 28 pg (25-35) 28 pg (25-35) Mean Corpuscular Hemoglobin Concent 33 g/dL (31-37) 33 g/dL (31-37) Red Cell Distribution Width 15.8 % (11.5-14.5) 15.9 % (11.5-14.5) Platelet Count 310 x10^3/uL (140-400) 304 x10^3/uL (140-400) Neutrophils (%) (Auto) 60 % (31-73) Lymphocytes (%) (Auto) 32 % (24-48) Monocytes (%) (Auto) 6 % (0-9) Eosinophils (%) (Auto) 2 % (0-3) Basophils (%) (Auto) 1 % (0-3) Neutrophils # (Auto) 3.5 x10^3uL (1.8-7.7) Lymphocytes # (Auto) 1.8 x10^3/uL (1.0-4.8) Monocytes # (Auto) 0.3 x10^3/uL (0.0-1.1) Eosinophils # (Auto) 0.1 x10^3/uL (0.0-0.7) Basophils # (Auto) 0.0 x10^3/uL (0.0-0.2) Prothrombin Time 13.2 SEC (11.7-14.0) Prothromb Time International Ratio 1.0 (0.8-1.1) D-Dimer (Sherry) 0.71 ug/mlFEU (0.00-0.50) Sodium Level 139 mmol/L (136-145) 138 mmol/L (136-145) Potassium Level 3.7 mmol/L (3.5-5.1) 4.3 mmol/L (3.5-5.1) Chloride Level 102 mmol/L (98-107) 103 mmol/L (98-107) Carbon Dioxide Level 24 mmol/L (21-32) 27 mmol/L (21-32) Anion Gap 13 (6-14) 8 (6-14) Blood Urea Nitrogen 13 mg/dL (7-20) 12 mg/dL (7-20) Creatinine 0.9 mg/dL (0.6-1.0) 0.8 mg/dL (0.6-1.0) Estimated GFR (Cockcroft-Gault) 79.9 91.5 BUN/Creatinine Ratio 14 (6-20) Glucose Level 131 mg/dL (70-99) 126 mg/dL (70-99) Calcium Level 8.8 mg/dL (8.5-10.1) 9.0 mg/dL (8.5-10.1) Total Bilirubin 0.7 mg/dL (0.2-1.0) Aspartate Amino Transf (AST/SGOT) 21 U/L (15-37) Alanine Aminotransferase (ALT/SGPT) 32 U/L (14-59) Alkaline Phosphatase 102 U/L (46-116) Troponin I Quantitative < 0.017 ng/mL (0.000-0.055) < 0.017 ng/mL (0.000-0.055) OT-Vin-S-Type Natriuretic Peptide 64 pg/mL (0-124) Total Protein 7.8 g/dL (6.4-8.2) Albumin 3.6 g/dL (3.4-5.0) Albumin/Globulin Ratio 0.9 (1.0-1.7) Urine Collection Type Void Urine Color Yellow Urine Clarity Cloudy Urine pH 7.0 Urine Specific [place] 1.025 Urine Protein Negative mg/dL (NEG-TRACE) Urine Glucose (UA) Negative mg/dL (NEG) Urine Ketones (Stick) Negative mg/dL (NEG) Urine Blood Large (NEG) Urine Nitrite Negative (NEG) Urine Bilirubin Negative (NEG) Urine Urobilinogen Dipstick 1.0 mg/dL (0.2 mg/dL) Urine Leukocyte Esterase Trace (NEG) Urine RBC 11-20 /HPF (0-2) Urine WBC 1-4 /HPF (0-4) Urine Squamous Epithelial Cells Many /LPF Urine Bacteria Few /HPF (0-FEW) Urine Mucus Marked /LPF Magnesium Level 2.0 mg/dL (1.8-2.4) Triglycerides Level 25 mg/dL (0-150) Cholesterol Level 187 mg/dL (0-200) LDL Cholesterol, Calculated 126 mg/dL (0-100) VLDL Cholesterol, Calculated 5 mg/dL (0-40) Non-HDL Cholesterol Calculated 131 mg/dL (0-129) HDL Cholesterol 56 mg/dL (40-60) Cholesterol/HDL Ratio 3.3 Assessment and Plan Assessmemt and Plan Problems Medical Problems: (1) Chest pain Status: Acute Comment Review of Relevant I have reviewed the following items elizabeth (where applicable) has been applied. Labs Laboratory Tests Test 07/12/18 13:20 07/12/18 14:32 07/13/18 04:05 White Blood Count 5.8 x10^3/uL (4.0-11.0) 4.2 x10^3/uL (4.0-11.0) Red Blood Count 4.75 x10^6/uL (3.50-5.40) 4.52 x10^6/uL (3.50-5.40) Hemoglobin 13.3 g/dL (12.0-15.5) 12.7 g/dL (12.0-15.5) Hematocrit 40.6 % (36.0-47.0) 38.7 % (36.0-47.0) Mean Corpuscular Volume 85 fL (79-100) 86 fL (79-100) Mean Corpuscular Hemoglobin 28 pg (25-35) 28 pg (25-35) Mean Corpuscular Hemoglobin Concent 33 g/dL (31-37) 33 g/dL (31-37) Red Cell Distribution Width 15.8 % (11.5-14.5) 15.9 % (11.5-14.5) Platelet Count 310 x10^3/uL (140-400) 304 x10^3/uL (140-400) Neutrophils (%) (Auto) 60 % (31-73) Lymphocytes (%) (Auto) 32 % (24-48) Monocytes (%) (Auto) 6 % (0-9) Eosinophils (%) (Auto) 2 % (0-3) Basophils (%) (Auto) 1 % (0-3) Neutrophils # (Auto) 3.5 x10^3uL (1.8-7.7) Lymphocytes # (Auto) 1.8 x10^3/uL (1.0-4.8) Monocytes # (Auto) 0.3 x10^3/uL (0.0-1.1) Eosinophils # (Auto) 0.1 x10^3/uL (0.0-0.7) Basophils # (Auto) 0.0 x10^3/uL (0.0-0.2) Prothrombin Time 13.2 SEC (11.7-14.0) Prothromb Time International Ratio 1.0 (0.8-1.1) D-Dimer (Sherry) 0.71 ug/mlFEU (0.00-0.50) Sodium Level 139 mmol/L (136-145) 138 mmol/L (136-145) Potassium Level 3.7 mmol/L (3.5-5.1) 4.3 mmol/L (3.5-5.1) Chloride Level 102 mmol/L (98-107) 103 mmol/L (98-107) Carbon Dioxide Level 24 mmol/L (21-32) 27 mmol/L (21-32) Anion Gap 13 (6-14) 8 (6-14) Blood Urea Nitrogen 13 mg/dL (7-20) 12 mg/dL (7-20) Creatinine 0.9 mg/dL (0.6-1.0) 0.8 mg/dL (0.6-1.0) Estimated GFR (Cockcroft-Gault) 79.9 91.5 BUN/Creatinine Ratio 14 (6-20) Glucose Level 131 mg/dL (70-99) 126 mg/dL (70-99) Calcium Level 8.8 mg/dL (8.5-10.1) 9.0 mg/dL (8.5-10.1) Total Bilirubin 0.7 mg/dL (0.2-1.0) Aspartate Amino Transf (AST/SGOT) 21 U/L (15-37) Alanine Aminotransferase (ALT/SGPT) 32 U/L (14-59) Alkaline Phosphatase 102 U/L (46-116) Troponin I Quantitative < 0.017 ng/mL (0.000-0.055) < 0.017 ng/mL (0.000-0.055) XC-Det-O-Type Natriuretic Peptide 64 pg/mL (0-124) Total Protein 7.8 g/dL (6.4-8.2) Albumin 3.6 g/dL (3.4-5.0) Albumin/Globulin Ratio 0.9 (1.0-1.7) Urine Collection Type Void Urine Color Yellow Urine Clarity Cloudy Urine pH 7.0 Urine Specific [place] 1.025 Urine Protein Negative mg/dL (NEG-TRACE) Urine Glucose (UA) Negative mg/dL (NEG) Urine Ketones (Stick) Negative mg/dL (NEG) Urine Blood Large (NEG) Urine Nitrite Negative (NEG) Urine Bilirubin Negative (NEG) Urine Urobilinogen Dipstick 1.0 mg/dL (0.2 mg/dL) Urine Leukocyte Esterase Trace (NEG) Urine RBC 11-20 /HPF (0-2) Urine WBC 1-4 /HPF (0-4) Urine Squamous Epithelial Cells Many /LPF Urine Bacteria Few /HPF (0-FEW) Urine Mucus Marked /LPF Magnesium Level 2.0 mg/dL (1.8-2.4) Triglycerides Level 25 mg/dL (0-150) Cholesterol Level 187 mg/dL (0-200) LDL Cholesterol, Calculated 126 mg/dL (0-100) VLDL Cholesterol, Calculated 5 mg/dL (0-40) Non-HDL Cholesterol Calculated 131 mg/dL (0-129) HDL Cholesterol 56 mg/dL (40-60) Cholesterol/HDL Ratio 3.3 Laboratory Tests Test 07/12/18 13:20 07/12/18 14:32 07/13/18 04:05 White Blood Count 5.8 x10^3/uL (4.0-11.0) 4.2 x10^3/uL (4.0-11.0) Red Blood Count 4.75 x10^6/uL (3.50-5.40) 4.52 x10^6/uL (3.50-5.40) Hemoglobin 13.3 g/dL (12.0-15.5) 12.7 g/dL (12.0-15.5) Hematocrit 40.6 % (36.0-47.0) 38.7 % (36.0-47.0) Mean Corpuscular Volume 85 fL (79-100) 86 fL (79-100) Mean Corpuscular Hemoglobin 28 pg (25-35) 28 pg (25-35) Mean Corpuscular Hemoglobin Concent 33 g/dL (31-37) 33 g/dL (31-37) Red Cell Distribution Width 15.8 % (11.5-14.5) 15.9 % (11.5-14.5) Platelet Count 310 x10^3/uL (140-400) 304 x10^3/uL (140-400) Neutrophils (%) (Auto) 60 % (31-73) Lymphocytes (%) (Auto) 32 % (24-48) Monocytes (%) (Auto) 6 % (0-9) Eosinophils (%) (Auto) 2 % (0-3) Basophils (%) (Auto) 1 % (0-3) Neutrophils # (Auto) 3.5 x10^3uL (1.8-7.7) Lymphocytes # (Auto) 1.8 x10^3/uL (1.0-4.8) Monocytes # (Auto) 0.3 x10^3/uL (0.0-1.1) Eosinophils # (Auto) 0.1 x10^3/uL (0.0-0.7) Basophils # (Auto) 0.0 x10^3/uL (0.0-0.2) Prothrombin Time 13.2 SEC (11.7-14.0) Prothromb Time International Ratio 1.0 (0.8-1.1) D-Dimer (Sherry) 0.71 ug/mlFEU (0.00-0.50) Sodium Level 139 mmol/L (136-145) 138 mmol/L (136-145) Potassium Level 3.7 mmol/L (3.5-5.1) 4.3 mmol/L (3.5-5.1) Chloride Level 102 mmol/L (98-107) 103 mmol/L (98-107) Carbon Dioxide Level 24 mmol/L (21-32) 27 mmol/L (21-32) Anion Gap 13 (6-14) 8 (6-14) Blood Urea Nitrogen 13 mg/dL (7-20) 12 mg/dL (7-20) Creatinine 0.9 mg/dL (0.6-1.0) 0.8 mg/dL (0.6-1.0) Estimated GFR (Cockcroft-Gault) 79.9 91.5 BUN/Creatinine Ratio 14 (6-20) Glucose Level 131 mg/dL (70-99) 126 mg/dL (70-99) Calcium Level 8.8 mg/dL (8.5-10.1) 9.0 mg/dL (8.5-10.1) Total Bilirubin 0.7 mg/dL (0.2-1.0) Aspartate Amino Transf (AST/SGOT) 21 U/L (15-37) Alanine Aminotransferase (ALT/SGPT) 32 U/L (14-59) Alkaline Phosphatase 102 U/L (46-116) Troponin I Quantitative < 0.017 ng/mL (0.000-0.055) < 0.017 ng/mL (0.000-0.055) LN-Byo-O-Type Natriuretic Peptide 64 pg/mL (0-124) Total Protein 7.8 g/dL (6.4-8.2) Albumin 3.6 g/dL (3.4-5.0) Albumin/Globulin Ratio 0.9 (1.0-1.7) Urine Collection Type Void Urine Color Yellow Urine Clarity Cloudy Urine pH 7.0 Urine Specific [place] 1.025 Urine Protein Negative mg/dL (NEG-TRACE) Urine Glucose (UA) Negative mg/dL (NEG) Urine Ketones (Stick) Negative mg/dL (NEG) Urine Blood Large (NEG) Urine Nitrite Negative (NEG) Urine Bilirubin Negative (NEG) Urine Urobilinogen Dipstick 1.0 mg/dL (0.2 mg/dL) Urine Leukocyte Esterase Trace (NEG) Urine RBC 11-20 /HPF (0-2) Urine WBC 1-4 /HPF (0-4) Urine Squamous Epithelial Cells Many /LPF Urine Bacteria Few /HPF (0-FEW) Urine Mucus Marked /LPF Magnesium Level 2.0 mg/dL (1.8-2.4) Triglycerides Level 25 mg/dL (0-150) Cholesterol Level 187 mg/dL (0-200) LDL Cholesterol, Calculated 126 mg/dL (0-100) VLDL Cholesterol, Calculated 5 mg/dL (0-40) Non-HDL Cholesterol Calculated 131 mg/dL (0-129) HDL Cholesterol 56 mg/dL (40-60) Cholesterol/HDL Ratio 3.3 Medications Current Medications Morphine Sulfate (Morphine Sulfate) 4 mg 1X ONCE IV Last administered on 07/12/18at 13:49; Start 07/12/18 at 13:45; Stop 07/12/18 at 13:46; Status DC Morphine Sulfate (Morphine Sulfate) 4 mg 1X ONCE IV Last administered on 07/12/18at 14:54; Start 07/12/18 at 14:45; Stop 07/12/18 at 14:53; Status DC Iohexol (Omnipaque 350 Mg/ml) 100 ml 1X ONCE IV Last administered on 07/12/18at 15:00; Start 07/12/18 at 15:00; Stop 07/12/18 at 15:01; Status DC Info (CONTRAST GIVEN -- Rx MONITORING) 1 each PRN DAILY PRN MC SEE COMMENTS; Start 07/12/18 at 15:00; Stop 07/14/18 at 14:59 Aspirin (Children'S Aspirin) 81 mg DAILYWBKFT PO Last administered on 07/12/18at 18:27; Start 07/12/18 at 16:30 Nitroglycerin (Nitrostat) 0.4 mg PRN Q5MIN PRN SL CHEST PAIN; Start 07/12/18 at 15:15 Acetaminophen (Tylenol) 650 mg PRN Q6HRS PRN PO MILD PAIN / TEMP Last administered on 07/12/18at 20:15; Start 07/12/18 at 15:15 Al Hydroxide/Mg Hydroxide (Mylanta Plus Xs) 30 ml PRN Q4HRS PRN PO HEARTBURN / GAS; Start 07/12/18 at 15:15 Ondansetron HCl (Zofran) 4 mg PRN Q6HRS PRN IV NAUSEA/VOMITING; Start 07/12/18 at 15:15 Zolpidem Tartrate (Ambien) 5 mg PRN QHS PRN PO INSOMNIA; Start 07/12/18 at 15:15; Stop 07/12/18 at 19:58; Status DC Heparin Sodium (Porcine) (Heparin Sodium) 5,000 unit Q8HRS SQ Last administered on 07/13/18at 06:06; Start 07/12/18 at 22:00 Sodium Chloride (Normal Saline Flush) 3 ml QSHIFT PRN IV AFTER MEDS AND BLOOD DRAWS; Start 07/12/18 at 15:15 Lactulose (Lactulose) 20 gm PRN Q12HR PRN PO CONSTIPATION; Start 07/12/18 at 15:15 Enalaprilat (Vasotec Inj) 1.25 mg PRN Q6HRS PRN IVP BP greater than 170/110; Start 07/12/18 at 15:15 Dexamethasone Sodium Phosphate (Decadron) 4 mg 1X ONCE IV Last administered on 07/12/18at 20:16; Start 07/12/18 at 19:00; Stop 07/12/18 at 19:01; Status DC Amlodipine Besylate (Norvasc) 5 mg DAILY PO ; Start 07/13/18 at 09:00 Hydrochlorothiazide (Microzide) 12.5 mg DAILY PO ; Start 07/13/18 at 09:00 Sertraline HCl (Zoloft) 50 mg DAILY PO ; Start 07/13/18 at 09:00 Tramadol HCl (Ultram) 50 mg PRN Q4HRS PRN PO PAIN Last administered on 07/13/18at 04:23; Start 07/12/18 at 19:00 Heparin Sodium/ Dextrose 500 ml @ 0 mls/hr CONT PRN IV SEE I/O RECORD; Start 07/12/18 at 19:30; Stop 07/12/18 at 19:49; Status DC Heparin Sodium (Porcine) (Heparin Sodium) 4,450 unit PRN Q6HRS PRN IV FOR UFH LEVEL LESS THAN 0.2; Start 07/12/18 at 19:30; Stop 07/12/18 at 19:49; Status DC Heparin Sodium (Porcine) (Heparin Sodium) 2,200 unit PRN Q6HRS PRN IV FOR UFH LEVEL 0.2 - 0.29; Start 07/12/18 at 19:30; Stop 07/12/18 at 19:49; Status DC Temazepam (Restoril) 15 mg PRN QHS PRN PO INSOMNIA Last administered on 9at 20:15; Start 07/12/18 at 19:45 Regadenoson (Lexiscan) 0.4 mg 1X ONCE IV ; Start 07/13/18 at 08:00; Stop 07/13/18 at 08:01; Status DC Active Scripts Active Reported Zoloft (Sertraline Hcl) 50 Mg Tablet 1 Tab PO DAILY Hydrochlorothiazide Capsule (Hydrochlorothiazide) 12.5 Mg Capsule 12.5 Mg PO DAILY Vitamin D (Cholecalciferol (Vitamin D3)) 2,000 Unit Capsule 1 Cap PO DAILY Amlodipine Besylate 5 Mg Tablet 5 Mg PO DAILY Tramadol Hcl 50 Mg Tablet 50 Mg PO Q4HRS PRN Vitals/I & O Vital Sign - Last 24 Hours 07/12/18 07/12/18 07/12/18 07/12/18 13:12 13:27 13:49 14:00 Temp 98.3 98.3 Pulse 99 90 94 Resp 24 16 22 B/P (MAP) 174/92 (119) 146/82 (103) 109/78 (88) Pulse Ox 100 98 97 98 O2 Delivery Room Air Room Air Room Air Room Air 07/12/18 07/12/18 07/12/18 07/12/18 14:30 15:00 15:30 17:10 Temp 98.2 98.2 Pulse 90 87 79 77 Resp 22 24 22 18 B/P (MAP) 140/84 (102) 163/82 (109) 149/74 (99) 154/78 (103) Pulse Ox 98 98 98 98 O2 Delivery Room Air Room Air Room Air Room Air 07/12/18 07/12/18 07/12/18 07/12/18 17:44 19:40 20:00 20:15 Temp 98.3 98.3 Pulse 80 Resp 18 18 B/P (MAP) 136/73 (94) Pulse Ox 96 98 O2 Delivery Room Air Room Air Room Air Room Air 07/12/18 07/13/18 07/13/18 07/13/18 23:47 03:20 04:23 05:23 Temp 97.9 97.9 97.9 97.9 Pulse 70 71 Resp 18 18 18 16 B/P (MAP) 137/62 (87) 137/80 (99) Pulse Ox 98 99 99 99 O2 Delivery Nasal Cannula Nasal Cannula Room Air Room Air O2 Flow Rate 2.0 2.0 2.0 2.0 07/13/18 07:00 Temp 97.7 97.7 Pulse 70 Resp 18 B/P (MAP) 138/84 (102) Pulse Ox 97 O2 Delivery Nasal Cannula O2 Flow Rate 2.0 Intake and Output 07/12/18 07/12/18 07/13/18 14:59 22:59 06:59 Intake Total 1000 ml 200 ml Balance 1000 ml 200 ml Images CTPA - 1. No CT evidence of acute pulmonary emboli. 2. Mild mosaic attenuation the lungs which can be due to a variety of causes including small airway disease with air trapping, chronic thromboembolic disease or nonspecific groundglass opacities. FABI IGLESIAS MD July 13, 2018 08:10
[2018-07-13] MEDS: IPRATRPIUM/ALBUTEROL 0.5/2.5MG 3 ML NEBU. NEB SCH ×3 (08:51→16:08)
[2018-07-13] MEDS ORDERED: hydroCHLOROthiazide 12.5 MG CAPSULE PO SCH (09:00)
[2018-07-13] MEDS ORDERED: BUDESONIDE 0.5 MG/2 ML NEBU. NEB SCH (09:00)
[2018-07-13] MEDS ORDERED: amLODIPine BESYLATE 5 MG TABLET PO SCH (09:00)
[2018-07-13] MEDS ORDERED: SERTRALINE 50 MG TABLET. PO SCH (09:00)
[2018-07-13] MEDS ORDERED: PANTOPRAZOLE 40 MG TABLET.DR. PO SCH (09:00)
--- NOTE | 2018-07-13 10:13 | PDOC2 ---
CARDIAC CONSULT DATE OF CONSULT Date of Consult DATE: 07/13/18 TIME: 10:00 REASON FOR CONSULT Reason for Consult: Chest pain REFERRING PHYSICIAN Referring Physician: Rubina SOURCE Source: Chart review, Patient HISTORY OF PRESENT ILLNESS HISTORY OF PRESENT ILLNESS This is a pleasant 53 yo female admitted for complains of chest pain. she woke the other night with sharp stabbing right chest pain nonradiating. She has been having more constipation and heartburn lately. No nausea or vomiting but notable for MOTA. She is morbidly obese and does not exercise and her job does not require heavy exertion working as a truck supervisor for [employer] This is also reproducible with inspiration and palpation. No palpitations, no recent intractable coughing. Denies any vomiting, no falls or any recent injury. She does feel tired midday and has not been tested for SANYA. She takes HTN meds and was noted with recent A1C of 5.8. She does complain of leg edema that is intermittent and does not wear compression stocking. denies any symptoms of astham exacerbation. PAST MEDICAL HISTORY Cardiovascular: HTN Pulmonary: Asthma CENTRAL NERVOUS SYSTEM: Other (No pertinent history) GI: Constipation Heme/Onc: No pertinent hx Psych: Anxiety Musculoskeletal: Osteoarthritis Rheumatologic: No pertinent hx Infectious disease: No pertinent hx ENT: No pertinent hx Renal/: No pertinent hx Endocrine: Other (metabolic syndrome) Dermatology: No pertinent hx FAMILY HISTORY Family History no immediated familly memebr CV issues but uncles has hx of SCD SOCIAL HISTORY Smoke: No ALCOHOL: occassional Drugs: None Lives: with Family CURRENT MEDICATIONS CURRENT MEDICATIONS Current Medications Medications (Trade) Dose Ordered Sig/Linden Route PRN Reason Start Time Stop Time Status Last Admin Dose Admin Morphine Sulfate (Morphine Sulfate) 4 mg 1X ONCE IV 07/12/18 13:45 07/12/18 13:46 DC 07/12/18 13:49 Morphine Sulfate (Morphine Sulfate) 4 mg 1X ONCE IV 07/12/18 14:45 07/12/18 14:53 DC 07/12/18 14:54 Iohexol (Omnipaque 350 Mg/ml) 100 ml 1X ONCE IV 07/12/18 15:00 07/12/18 15:01 DC 07/12/18 15:00 Aspirin (Children'S Aspirin) 81 mg DAILYWBKFT PO 07/12/18 16:30 07/12/18 18:27 Acetaminophen (Tylenol) 650 mg PRN Q6HRS PRN PO HEADACHE / TEMP 07/12/18 15:15 07/12/18 20:15 Heparin Sodium (Porcine) (Heparin Sodium) 5,000 unit Q8HRS SQ 07/12/18 22:00 07/13/18 06:06 Dexamethasone Sodium Phosphate (Decadron) 4 mg 1X ONCE IV 07/12/18 19:00 07/12/18 19:01 DC 07/12/18 20:16 Tramadol HCl (Ultram) 50 mg PRN Q4HRS PRN PO PAIN 07/12/18 19:00 07/13/18 04:23 Temazepam (Restoril) 15 mg PRN QHS PRN PO INSOMNIA 07/12/18 19:45 07/12/18 20:15 Regadenoson (Lexiscan) 0.4 mg 1X ONCE IV 07/13/18 08:00 07/13/18 08:01 DC 07/13/18 08:54 ALLERGIES ALLERGIES: Coded Allergies: No Known Drug Allergies (Unverified , 10/09/16) ROS Review of System 14 point ROS evaluated with pertinent positives note per HPI PHYSICAL EXAM General: Alert, Oriented X3, Cooperative, No acute distress HEENT: Atraumatic, Mucous membr. moist/pink Lungs: Clear to auscultation, Normal air movement Heart: Regular rate (SR), Other (distant heart sounds) Abdomen: Soft, Other (obese) Extremities: No cyanosis, Other (1+ bilateral LE pitting edema; 2+ bilateral pedal pulses) Skin: No breakdown, No significant lesion Neuro: Normal speech, Sensation intact Psych/Mental Status: Mental status NL, Mood NL MUSCULOSKELETAL: Other (right chest pain with palpation and with inspiration) VITALS VITALS Vital Signs Date Time Temp Pulse Resp B/P (MAP) Pulse Ox O2 Delivery O2 Flow Rate FiO2 07/13/18 08:00 Room Air 07/13/18 07:00 97.7 70 18 138/84 (102) 97 2.0 97.7 LABS Lab: Laboratory Tests Test 07/12/18 13:20 07/12/18 14:32 07/13/18 04:05 White Blood Count 5.8 x10^3/uL (4.0-11.0) 4.2 x10^3/uL (4.0-11.0) Red Blood Count 4.75 x10^6/uL (3.50-5.40) 4.52 x10^6/uL (3.50-5.40) Hemoglobin 13.3 g/dL (12.0-15.5) 12.7 g/dL (12.0-15.5) Hematocrit 40.6 % (36.0-47.0) 38.7 % (36.0-47.0) Mean Corpuscular Volume 85 fL (79-100) 86 fL (79-100) Mean Corpuscular Hemoglobin 28 pg (25-35) 28 pg (25-35) Mean Corpuscular Hemoglobin Concent 33 g/dL (31-37) 33 g/dL (31-37) Red Cell Distribution Width 15.8 % (11.5-14.5) 15.9 % (11.5-14.5) Platelet Count 310 x10^3/uL (140-400) 304 x10^3/uL (140-400) Neutrophils (%) (Auto) 60 % (31-73) Lymphocytes (%) (Auto) 32 % (24-48) Monocytes (%) (Auto) 6 % (0-9) Eosinophils (%) (Auto) 2 % (0-3) Basophils (%) (Auto) 1 % (0-3) Neutrophils # (Auto) 3.5 x10^3uL (1.8-7.7) Lymphocytes # (Auto) 1.8 x10^3/uL (1.0-4.8) Monocytes # (Auto) 0.3 x10^3/uL (0.0-1.1) Eosinophils # (Auto) 0.1 x10^3/uL (0.0-0.7) Basophils # (Auto) 0.0 x10^3/uL (0.0-0.2) Prothrombin Time 13.2 SEC (11.7-14.0) Prothromb Time International Ratio 1.0 (0.8-1.1) D-Dimer (Sherry) 0.71 ug/mlFEU (0.00-0.50) Sodium Level 139 mmol/L (136-145) 138 mmol/L (136-145) Potassium Level 3.7 mmol/L (3.5-5.1) 4.3 mmol/L (3.5-5.1) Chloride Level 102 mmol/L (98-107) 103 mmol/L (98-107) Carbon Dioxide Level 24 mmol/L (21-32) 27 mmol/L (21-32) Anion Gap 13 (6-14) 8 (6-14) Blood Urea Nitrogen 13 mg/dL (7-20) 12 mg/dL (7-20) Creatinine 0.9 mg/dL (0.6-1.0) 0.8 mg/dL (0.6-1.0) Estimated GFR (Cockcroft-Gault) 79.9 91.5 BUN/Creatinine Ratio 14 (6-20) Glucose Level 131 mg/dL (70-99) 126 mg/dL (70-99) Calcium Level 8.8 mg/dL (8.5-10.1) 9.0 mg/dL (8.5-10.1) Total Bilirubin 0.7 mg/dL (0.2-1.0) Aspartate Amino Transf (AST/SGOT) 21 U/L (15-37) Alanine Aminotransferase (ALT/SGPT) 32 U/L (14-59) Alkaline Phosphatase 102 U/L (46-116) Troponin I Quantitative < 0.017 ng/mL (0.000-0.055) < 0.017 ng/mL (0.000-0.055) TE-Bxb-I-Type Natriuretic Peptide 64 pg/mL (0-124) Total Protein 7.8 g/dL (6.4-8.2) Albumin 3.6 g/dL (3.4-5.0) Albumin/Globulin Ratio 0.9 (1.0-1.7) Urine Collection Type Void Urine Color Yellow Urine Clarity Cloudy Urine pH 7.0 Urine Specific [place] 1.025 Urine Protein Negative mg/dL (NEG-TRACE) Urine Glucose (UA) Negative mg/dL (NEG) Urine Ketones (Stick) Negative mg/dL (NEG) Urine Blood Large (NEG) Urine Nitrite Negative (NEG) Urine Bilirubin Negative (NEG) Urine Urobilinogen Dipstick 1.0 mg/dL (0.2 mg/dL) Urine Leukocyte Esterase Trace (NEG) Urine RBC 11-20 /HPF (0-2) Urine WBC 1-4 /HPF (0-4) Urine Squamous Epithelial Cells Many /LPF Urine Bacteria Few /HPF (0-FEW) Urine Mucus Marked /LPF Magnesium Level 2.0 mg/dL (1.8-2.4) Triglycerides Level 25 mg/dL (0-150) Cholesterol Level 187 mg/dL (0-200) LDL Cholesterol, Calculated 126 mg/dL (0-100) VLDL Cholesterol, Calculated 5 mg/dL (0-40) Non-HDL Cholesterol Calculated 131 mg/dL (0-129) HDL Cholesterol 56 mg/dL (40-60) Cholesterol/HDL Ratio 3.3 ASSESSMENT/PLAN ASSESSMENT/PLAN 1. Atypical CP: possibly GI. potential CTE per CT 2. HTN: controlled. 3. HLP 4. Hx of asthma: controlled 5. Suspect SANYA 6. Metabolic syndrome 7. GERD Recommendations 1. MPI is pending. TTE and note any RV changes and PAP 2. Wt loss, exercise. 3. Start on PPI. Continue home BP regimen. 4. Will need outpt SANYA w/u PACHECO MALDONADO [employer] July 13, 2018 10:13
--- NOTE | 2018-07-13 11:24 | RAD ---
MR#: [id number] Date of Study: 07/13/2018 Ordering Physician: DONNA SHIRLEY Referring Physician: JITENDRA VALADEZ Tech: Jc López RT (R) (N) APPROVED REPORT Test Type: Pharmacological Stress Nurse/Tech: Lan Merino RN Test Indications: chest pain, dyspnea Cardiac History: asthma Medications: See Electronic Medical Record Medical History: See Electronic Medical Record Resting ECG: SR Resting Heart Rate: 69 bpm Resting Blood Pressure: 145/68mmHg Pretest Chest Pain: None Nurse/Tech Notes lungs CTA, S1S2 Consent: The procedure was explained to the patient in lay terms. Informed consent was witnessed. Thanh eout was entered into [facility]. History and Stress Test performed by Lan Merino RN Pharm. Details Pharmacologic stress testing was performed using 0.4mg per 5ml of regadenoson given intravenously ove r 7-10 seconds. Stress Symptoms Dyspnea POST EXERCISE Reason for Termination: Infusion complete Max HR: 97 bpm Max Blood Pressure: 148/52mmHg Blood Pressure response to exercise: Normal blood pressure response during stress. Heart Rate response to exercise: normal response Chest Pain: No. Arrhythmia: No. ST Change: No. INTERPRETATION Stress EKG Conclusion: Baseline EKG showed sinus rhythm. No ischemic changes at peak stress. No arr hythmias. Rest: Stress: Viability: Radiopharm.Tc99m Sestamibi [id number] Duration 15min. Img Date 07/13/2018 Inj-Img [id number]. Stress Admin Site: IV - Right AntecubitalAdministrator: AN Tracey STRESS DATA End Diast. Vol.108.0mlAv. Heart Rate81.0bpm End Syst. Vol.38.0mlCO Index BSA0.0L/min Myocardial Tmmq973.0gEject. Cgctipwy02.0% Stress Rates Pk. Fill Rate3.67EDV/secLVtime Pk. Fill 187.85msec Pk. Empty Rate4.45ESV/secLVtime Pk. Ihzfr441.84msec /3 Pk. Fill1.27EDV/sec Stress Scores Regional WT0.00Summed WT5.00 Regional WM0.00Summed WM2.00 LV Perfusion Stress scintigraphic images did not show any significant perfusion defects. Wall Motion Normal left ventricular sytolic function with ejection fraction calculated at 65%. LV Perf. Quant 17 Seg. SSS5.00 Stress Defect Extent (% LAD)0.00Rest Defect Extent (% LAD)Rev. Defect Extent (% LAD)0.00 Stress Defect Extent (% LCX) 11.30Rest Defect Extent (% LCX)Rev. Defect Extent (% LCX)0.00 Stress Defect Extent (% RCA)3.30Rest Defect Extent (% RCA)Rev. Defect Extent (% RCA)0.00 Stress Defect Extent (% KERRY)5.20Rest Defect Extent (% KERRY)Rev. Defect Extent (% KERRY)0.00 Conclusion 1. Regadenoson cardioisotope stress test did not show any evidence of ischemia or infarct. 2. Normal left ventricular systolic function with ejection fraction calculated at 65%. 3. Low risk for cardiac events. Signed by : Micah Ortiz, Electronically Approved : 07/13/2018 11:23:50
[2018-07-13] MEDS: ASPIRIN CHEWABLE 81 MG TABLET. PO SCH (11:28)
--- NOTE | 2018-07-13 12:32 | CARD ---
MR#: [id number] Date of Study: 07/13/2018 Ordering Physician: PACHECO MALDONADO, Referring Physician: DONNA SHIRLEY, Tech: Ritika Zhu APPROVED REPORT EXAM: Two-dimensional and M-mode echocardiogram with Doppler and color Doppler. Other Information Quality : AverageHR: 79bpm Technically limited study due to body habitus INDICATION Chest Pain 2D DIMENSIONS RVDd3.5 (2.9-3.5cm)Left Atrium(2D)3.3 (1.6-4.0cm) IVSd1.2 (0.7-1.1cm)Aortic Root(2D)2.9 (2.0-3.7cm) LVDd4.7 (3.9-5.9cm)LVOT Diameter2.1 (1.8-2.4cm) PWd1.1 (0.7-1.1cm)LVDs2.5 (2.5-4.0cm) FS (%) 47.5 %SV79.9 ml LVEF(%)78.9 (>50%) Aortic Valve AoV Peak Hong.124.7cm/sAoV VTI24.0cm AO Peak GR.6.2mmHgLVOT Peak Hong.102.1cm/s LVOT VTI 23.13cmAO Mean GR.3mmHg CISCO (VMAX)2.50zy7LXH (VTI)3.43cm2 Mitral Valve MV E Hoadesuy86.8cm/sMV DECEL [id number] MV A Zlmvgzcf17.0cm/sMV WSO22gg E/A Ratio1.9MVA (PHT)4.16cm2 TDI E/Lateral E'7.1E/Medial E'7.4 Pulmonary Valve PV Peak Bnlxzpuo694.9cm/sPV Peak Grad.6mmHg Pulmonary Vein S1 Pfaqcpel37.9cm/sD2 Bhsfpafr47.4cm/s PVa [id number] LEFT VENTRICLE The left ventricle is normal size. There is borderline concentric left ventricular hypertrophy. The l eft ventricular systolic function is normal. The Ejection Fraction is 55-60%. There is normal LV segm ental wall motion. The left ventricular diastolic function and filling is normal for age. RIGHT VENTRICLE The right ventricle is normal size. There is normal right ventricular wall thickness. The right ventr icular systolic function is normal. ATRIA The left atrium size is normal. The right atrium size is normal. The interatrial septum is intact wit h no evidence for an atrial septal defect or patent foramen ovale as noted on 2-D or Doppler imaging. AORTIC VALVE The aortic valve is not well visualized. Doppler and Color Flow revealed no significant aortic regurg itation. There is no significant aortic valvular stenosis. MITRAL VALVE The mitral valve is normal in structure and function. There is no evidence of mitral valve prolapse. There is no mitral valve stenosis. Doppler and Color Flow revealed trace mitral valve regurgitation. TRICUSPID VALVE The tricuspid valve is normal in structure and function. Doppler and Color Flow revealed trace tricus pid valve regurgitation. There is no tricuspid valve stenosis. PULMONIC VALVE The pulmonic valve is not well visualized. Doppler and Color Flow revealed no pulmonic valvular regur gitation. GREAT VESSELS The aortic root is normal in size. The IVC is normal in size and collapses >50% with inspiration. PERICARDIAL EFFUSION There is no evidence of significant pericardial effusion. Critical Notification Critical Value: No <Conclusion> The left ventricular systolic function is normal. The Ejection Fraction is 55-60%. There is normal LV segmental wall motion. Trace mitral valve regurgitation. Trace tricuspid valve regurgitation. There is no evidence of significant pericardial effusion. Signed by : Micah Ortiz, Electronically Approved : 07/13/2018 12:32:05
--- NOTE | 2018-07-13 13:33 | NUR ---
SS following for discharge planning. SS reviewed pt chart. Pt is from home with spouse and is currently on room air. No discharge needs noted at this time. SS will continue to follow for discharge planning.
[2018-07-13 15:00] VITALS: BP 135/79
[2018-07-13] MEDS ORDERED: MONT10TA9 PO (15:27)
[2018-07-13] MEDS ORDERED: Pantoprazole PO (15:27)
[2018-07-13] MEDS ORDERED: BUDE10.22 IH (15:29)
[2018-07-13] MEDS ORDERED: ALBU2.5V8 INH (15:29)
--- NOTE | 2018-07-13 15:29 | PDOC3 ---
Discharge Summary Visit Information Date of Admission: July 12, 2018 Date of Discharge: July 13, 2018 Admitting Diagnosis: Chest pain, shortness of breath Final Diagnosis Problems Medical Problems: (1) Chest pain Status: Acute Brief Hospital Course Allergies Allergies Coded Allergies Type Severity Reaction Last Updated Verified No Known Drug Allergies 10/09/16 No Vital Signs Vital Signs Date Time Temp Pulse Resp B/P (MAP) Pulse Ox O2 Delivery O2 Flow Rate FiO2 07/13/18 12:40 Room Air 07/13/18 12:14 100 07/13/18 11:33 80 154/72 07/13/18 07:00 97.7 18 2.0 97.7 Lab Results Laboratory Tests Test 07/12/18 13:20 07/12/18 14:32 07/13/18 04:05 07/13/18 12:20 White Blood Count 5.8 x10^3/uL (4.0-11.0) 4.2 x10^3/uL (4.0-11.0) Red Blood Count 4.75 x10^6/uL (3.50-5.40) 4.52 x10^6/uL (3.50-5.40) Hemoglobin 13.3 g/dL (12.0-15.5) 12.7 g/dL (12.0-15.5) Hematocrit 40.6 % (36.0-47.0) 38.7 % (36.0-47.0) Mean Corpuscular Volume 85 fL (79-100) 86 fL (79-100) Mean Corpuscular Hemoglobin 28 pg (25-35) 28 pg (25-35) Mean Corpuscular Hemoglobin Concent 33 g/dL (31-37) 33 g/dL (31-37) Red Cell Distribution Width 15.8 % (11.5-14.5) 15.9 % (11.5-14.5) Platelet Count 310 x10^3/uL (140-400) 304 x10^3/uL (140-400) Neutrophils (%) (Auto) 60 % (31-73) Lymphocytes (%) (Auto) 32 % (24-48) Monocytes (%) (Auto) 6 % (0-9) Eosinophils (%) (Auto) 2 % (0-3) Basophils (%) (Auto) 1 % (0-3) Neutrophils # (Auto) 3.5 x10^3uL (1.8-7.7) Lymphocytes # (Auto) 1.8 x10^3/uL (1.0-4.8) Monocytes # (Auto) 0.3 x10^3/uL (0.0-1.1) Eosinophils # (Auto) 0.1 x10^3/uL (0.0-0.7) Basophils # (Auto) 0.0 x10^3/uL (0.0-0.2) Prothrombin Time 13.2 SEC (11.7-14.0) Prothromb Time International Ratio 1.0 (0.8-1.1) D-Dimer (Sherry) 0.71 ug/mlFEU (0.00-0.50) Sodium Level 139 mmol/L (136-145) 138 mmol/L (136-145) Potassium Level 3.7 mmol/L (3.5-5.1) 4.3 mmol/L (3.5-5.1) Chloride Level 102 mmol/L (98-107) 103 mmol/L (98-107) Carbon Dioxide Level 24 mmol/L (21-32) 27 mmol/L (21-32) Anion Gap 13 (6-14) 8 (6-14) Blood Urea Nitrogen 13 mg/dL (7-20) 12 mg/dL (7-20) Creatinine 0.9 mg/dL (0.6-1.0) 0.8 mg/dL (0.6-1.0) Estimated GFR (Cockcroft-Gault) 79.9 91.5 BUN/Creatinine Ratio 14 (6-20) Glucose Level 131 mg/dL (70-99) 126 mg/dL (70-99) Calcium Level 8.8 mg/dL (8.5-10.1) 9.0 mg/dL (8.5-10.1) Total Bilirubin 0.7 mg/dL (0.2-1.0) Aspartate Amino Transf (AST/SGOT) 21 U/L (15-37) Alanine Aminotransferase (ALT/SGPT) 32 U/L (14-59) Alkaline Phosphatase 102 U/L (46-116) Troponin I Quantitative < 0.017 ng/mL (0.000-0.055) < 0.017 ng/mL (0.000-0.055) < 0.017 ng/mL (0.000-0.055) YI-Ura-A-Type Natriuretic Peptide 64 pg/mL (0-124) Total Protein 7.8 g/dL (6.4-8.2) Albumin 3.6 g/dL (3.4-5.0) Albumin/Globulin Ratio 0.9 (1.0-1.7) Urine Collection Type Void Urine Color Yellow Urine Clarity Cloudy Urine pH 7.0 Urine Specific [place] 1.025 Urine Protein Negative mg/dL (NEG-TRACE) Urine Glucose (UA) Negative mg/dL (NEG) Urine Ketones (Stick) Negative mg/dL (NEG) Urine Blood Large (NEG) Urine Nitrite Negative (NEG) Urine Bilirubin Negative (NEG) Urine Urobilinogen Dipstick 1.0 mg/dL (0.2 mg/dL) Urine Leukocyte Esterase Trace (NEG) Urine RBC 11-20 /HPF (0-2) Urine WBC 1-4 /HPF (0-4) Urine Squamous Epithelial Cells Many /LPF Urine Bacteria Few /HPF (0-FEW) Urine Mucus Marked /LPF Magnesium Level 2.0 mg/dL (1.8-2.4) Triglycerides Level 25 mg/dL (0-150) Cholesterol Level 187 mg/dL (0-200) LDL Cholesterol, Calculated 126 mg/dL (0-100) VLDL Cholesterol, Calculated 5 mg/dL (0-40) Non-HDL Cholesterol Calculated 131 mg/dL (0-129) HDL Cholesterol 56 mg/dL (40-60) Cholesterol/HDL Ratio 3.3 Laboratory Tests Test 07/13/18 04:05 07/13/18 12:20 White Blood Count 4.2 x10^3/uL (4.0-11.0) Red Blood Count 4.52 x10^6/uL (3.50-5.40) Hemoglobin 12.7 g/dL (12.0-15.5) Hematocrit 38.7 % (36.0-47.0) Mean Corpuscular Volume 86 fL (79-100) Mean Corpuscular Hemoglobin 28 pg (25-35) Mean Corpuscular Hemoglobin Concent 33 g/dL (31-37) Red Cell Distribution Width 15.9 % (11.5-14.5) Platelet Count 304 x10^3/uL (140-400) Sodium Level 138 mmol/L (136-145) Potassium Level 4.3 mmol/L (3.5-5.1) Chloride Level 103 mmol/L (98-107) Carbon Dioxide Level 27 mmol/L (21-32) Anion Gap 8 (6-14) Blood Urea Nitrogen 12 mg/dL (7-20) Creatinine 0.8 mg/dL (0.6-1.0) Estimated GFR (Cockcroft-Gault) 91.5 Glucose Level 126 mg/dL (70-99) Calcium Level 9.0 mg/dL (8.5-10.1) Magnesium Level 2.0 mg/dL (1.8-2.4) Troponin I Quantitative < 0.017 ng/mL (0.000-0.055) < 0.017 ng/mL (0.000-0.055) Triglycerides Level 25 mg/dL (0-150) Cholesterol Level 187 mg/dL (0-200) LDL Cholesterol, Calculated 126 mg/dL (0-100) VLDL Cholesterol, Calculated 5 mg/dL (0-40) Non-HDL Cholesterol Calculated 131 mg/dL (0-129) HDL Cholesterol 56 mg/dL (40-60) Cholesterol/HDL Ratio 3.3 Brief Hospital Course Patient is a 53-year-old w/ PMHx hypertension and morbid obesity was in her usual state of health until approximately 4-6 weeks prior to her admission was complaining of shortness of breath. Patient also refers peripheral edema especially in her extremities up to the ankle. The patient complains of retrosternal reproducible sharp stabbing discomfort that she rates at a 7 out of 10 at the worst lasting less than 20 minutes per episode intermittent not associated with food intake. The patient denies cough no sinus drainage the patient does have asthma but denies recent bouts of exacerbations. The patient denies fever chills no sick contacts were reported. The patient denies sensation of impending doom when the episodes of chest discomfort occurred no nausea or vomiting associated either no diaphoresis. The patient does give a history of dietary transgression with excessive salt since she relates to me that she "loves [place] food". The patient seems quite disturbed due to her symptoms given that she has apparently a strong family history nevertheless at the time my evaluation she seems in no apparent distress sitting on the stretcher. Her pain was clearly reproducible during my encounter she denies paroxysmal nocturnal dyspnea she denies orthopnea does not carry a diagnosis of coronary artery disease nor congestive heart failure. The patient denies daytime sleepiness. Bilateral LE US negative for DVT, CTPA negative for acute emboli. EKG and troponin negative for ACS. BNP 64 r/o CHF. Cardiology consulted. She underwent echo and stress testing, both of which were negative. Was helped the most with nebulizers and PPI treatment which she will be sent home on GERD and asthma tr eatment, explained in detail to family bedside. She will schedule an outpatient sleep study. There is a remote possibility she may have chronic thromboembolic disease, however, no history of clots and no acute clots. Echo - The left ventricular systolic function is normal. The Ejection Fraction is 55-60%. There is normal LV segmental wall motion. Trace mitral valve regurgitation. Trace tricuspid valve regurgitation. There is no evidence of significant pericardial effusion. Cardiac Stress testing 1. Regadenoson cardioisotope stress test did not show any evidence of ischemia or infarct. 2. Normal left ventricular systolic function with ejection fraction calculated at 65%. 3. Low risk for cardiac events. A/P: Chest pain rule out ACS Hypertension Dietary transgressions with increased salt intake most likely Morbid obesity with BMI of 57 High risk for obstructive sleep apnea Chest discomfort most likely musculoskeletal in nature since it's reproducible Greater than 30 minutes spent on discharge. Discharge Information Condition at Discharge: Improved Follow Up: Weeks (2) Disposition/Orders: D/C to Home Scheduled Amlodipine Besylate (Amlodipine Besylate) 5 Mg Tablet, 5 MG PO DAILY for , (Reported) Entered as Reported by: KIM MERCHANT RN on 07/12/181699 Last Action: Continued on 07/12/181849 by DONNA SHIRLEY MD Budesonide/Formoterol Fumarate (Symbicort 80-4.5 Mcg Inhaler) 10.2 Gm Hfa.aer.ad, 1 PUFF IH BID for asthma for 30 Days, #1 Ref 2 Prescribed by: FABI IGLESIAS MD on 07/13/18 1529 Cholecalciferol (Vitamin D3) (Vitamin D) 2,000 Unit Capsule, 1 CAP PO DAILY for , #30 Ref 3 (Reported) Entered as Reported by: KIM MERCHANT RN on 07/12/181699 Last Action: HELD on 07/12/181849 by DONNA SHIRLEY MD Hydrochlorothiazide (Hydrochlorothiazide Capsule ) 12.5 Mg Capsule, 12.5 MG PO DAILY for DIURETIC, Ref 0 (Reported) Entered as Reported by: KIM MERCHANT RN on 07/12/181699 Last Action: Continued on 07/12/181849 by DONNA SHIRLEY MD Montelukast Sodium (Montelukast Sodium Tablet) 10 Mg Tablet, 10 MG PO QHS for Asthma for 30 Days, #30 Ref 5 Prescribed by: FABI IGLESIAS MD on 07/13/18 1527 Sertraline Hcl (Zoloft) 50 Mg Tablet, 1 TAB PO DAILY for , #30 Ref 2 (Reported) Entered as Reported by: KIM MERCHANT RN on 07/12/181699 Last Action: Continued on 07/12/181849 by DONNA SHIRLEY MD [Pantoprazole] 40 MG TABLET.DR, 40 MG PO DAILYAC for Reflux for 30 Days, #30 Ref 2 Prescribed by: FABI IGLESIAS MD on 07/13/187 Scheduled PRN Albuterol Sulfate (Proair Hfa Inhaler) 8.5 Gm Hfa.aer.ad, 1 PUFF INH PRN Q6HRS PRN for SHORTNESS OF BREATH for 30 Days, #1 Ref 2 Prescribed by: FABI IGLESIAS MD on 07/13/18 1529 Tramadol Hcl (Tramadol Hcl) 50 Mg Tablet, 50 MG PO Q4HRS PRN for PAIN, (Reported) Entered as Reported by: KIM MERCHANT RN on 07/12/181699 Last Action: Continued on 07/12/181849 by MD HARRIS VALADEZ CHRISTOPHER S MD July 13, 2018 15:29
--- NOTE | 2018-07-13 16:45 | NUR ---
Discharge Note: REESE BURNETTE [address] Discharge instructions and discharge home medications reviewed with Patient and a copy given. All questions have been answered and understanding verbalized. New prescriptions given to patient. The following instructions and handouts were given: Asthma and chest pain. Discontinued lines and drains: Peripheral IV intact. Patient discharged to Home or Self Care with Family Member via Amb[facility]
[2018-07-13] MEDS ORDERED: MONTELUKAST SODIUM 10 MG TABLET. PO SCH (21:00)
== END 2018-07-13 16:40 | disposition home or self-care (01) ==
LOC: ER 13:11 → 2 SOUTH 14:56
PROVIDERS: ADMIT Internal Medicine; ATTEND Internal Medicine
DX: R07.89 Other chest pain (principal); I10 Essential (primary) hypertension; J45.909 Unspecified asthma, uncomplicated; G47.33 Obstructive sleep apnea (adult) (pediatric); R60.0 Localized edema; E66.01 Morbid (severe) obesity due to excess calories; Z68.43 Body mass index [BMI] 50.0-59.9, adult
CPT/HCPCS: 36415; 71045; 71275; 78452; 80048; 80053; 80061; 81001; 83735; 83880; 84484; 85025; 85027; 85379; 85610; 93005; 93017; 93306; 93970; 94640; 94760; 96372; 96374; 96375; 96376; 99284; A9500; G0378; J1100; J1644; J2270; J2785; J7620; J7626; Q9967; G0379